=== PATIENT | male | born 1950 | race Caucasian/White ===

== ENCOUNTER 2021-12-22 06:20 | Outpatient (REF) | payer MEDICARE, SELFPAY ==
[2021-12-22 06:33] LABS: MANUAL DIFF FLAG NO
[2021-12-22 06:49] LABS: Basophils Percent Auto 0.2 % (0-2); Eosinophils Absolute Auto 0.1 X10*3/uL (0.0-0.4); Eosinophils Percent Auto 0.9 % (0-4); Hemoglobin 9.7 g/dl (14.0-18.0); Lymphocytes Absolute Auto 0.8 X10*3/uL (1.2-4.9); Lymphocytes Percent Auto 8.1 % (20-40); Mean Corpuscular HGB Conc 30.3 g/dl (31.0-36.0); Mean Corpuscular Hemoglobin 25.5 pg (27.0-33.0); Mean Platelet Volume 9.9 fL (9.4-12.4); Monocytes Absolute Auto 1.2 X10*3/uL (0.1-1.2); Monocytes Percent Auto 12.1 % (2-11); NRBC Pct Auto 0.2 /100WBC (0.0-0.2); Neutrophils Percent Auto 77.7 % (45-73); Platelet Count 230 X10*3/uL (160-400); Red Blood Count 3.81 X10*6/uL (4.60-5.80); Red Cell Distribution Width 16.8 % (11.0-16.0); White Blood Count 10.3 X10*3/uL (4.8-10.8)
[2021-12-22 07:16] LABS: Anion Gap 17 (12-20); Blood Urea Nitrogen 35 mg/dL (9-16); Carbon Dioxide 36 mmol/L (22-29); Chloride 88 mmol/L (96-108); Estimated Glomerular Filt Rate 54; Glucose Random 164 mg/dL (60-115); Potassium 4.2 mmol/L (3.3-5.1); Sodium 137 mmol/L (135-145)
== END 2021-12-22 06:21 | disposition home or self-care (01) ==
LOC: HO.MMNH1L 06:20
PROVIDERS: Visit Provider Family Medicine
DX: Z13.89 Encounter for screening for other disorder (principal)
CPT/HCPCS: 36415; 80048; 85025

== ENCOUNTER 2021-12-22 22:02 | Emergency (ER) | payer MEDICARE, MEDICAID, SELFPAY ==
--- NOTE | 2021-12-22 | ECG_ITS ---
Test Reason : dyspnea Blood Pressure : / mmHG Vent. Rate : 100 BPM Atrial Rate : 100 BPM P-R Int : 156 ms QRS Dur : 128 ms QT Int : 380 ms P-R-T Axes : 078 -52 069 degrees QTc Int : 490 ms Sinus tachycardia Right bundle branch block Left anterior fascicular block Bifascicular block Abnormal ECG No previous ECGs available Referred By: Robby Randall Electronically Signed By:CLIFFORD PADILLA MD
--- NOTE | ~2021-12-22 | XR_ITS ---
EXAMINATION: XR CHEST CLINICAL INFORMATION: Shortness of breath COMPARISON: None TECHNIQUE: Frontal view of the chest was obtained. FINDINGS: Probable COPD with bullous changes. Heart size within normal limits. Patient status post median sternotomy and CABG. There is no evidence of CHF. No infiltrates, effusions or lung masses. Anterior cervical spine fusion hardware is present. XR/XR chest 1V IMPRESSION: No acute intrathoracic disease. Probable COPD.
[2021-12-22 22:07] VITALS: BP 122/74; PULSE 96; RESP 18; TEMP 37.3; O2SAT 98; BMI 25.0
--- NOTE | 2021-12-22 22:12 | ED.SOB ---
HPI - SOB/Dyspnea General Chief Complaint: Dyspnea Stated Complaint: Chest Pressure for a few hours Source: patient Mode of arrival: EMS Limitations: no limitations History of Present Illness HPI Narrative: Patient with severe COPD with frequent hospitalization on home oxygen 2 L , coronary disease status post CABG 4 vessels and stent placement, diabetes mellitus, hyperlipidemia, obstructive sleep apnea, CHF, paroxysmal atrial fibrillation, CKD came from rehab center for increased shortness of breath with chest discomfort started for last 2 -3 days. Patient just had COVID about 2 weeks ago was in [facility] was on steroids which was stopped 5 days ago when patient was discharged in all Related Data Previous Rx's Medication Instructions Recorded doxycycline hyclate 100 mg tablet 100 mg PO BID #20 tabs 12/23/21 Allergies Allergy/AdvReac Type Severity Reaction Status Date / Time No Known Allergies Allergy Verified 12/22/21 22:22 Review of Systems Review of Systems: Yes all other systems are reviewed and are negative [facility] Past Medical History Medical History (Updated 12/23/21 @ 00:51 by Robby Randall MD) Anxiety disorder CHF (congestive heart failure) Chronic respiratory failure with hypoxia CKD (chronic kidney disease) COPD (chronic obstructive pulmonary disease) Coronary artery disease Hyperlipidemia Hypertension On home O2 Paroxysmal A-fib Surgical History (Updated 12/22/21 @ 23:09 by Robby Randall MD) H/O four vessel coronary artery bypass graft H/O heart artery stent Social History Social History Advance Directives: No Advance Directives Information Provided: No Physical Exam Vital Signs: Vital Signs: Last Vital Signs Temp 98.3 F 12/22/21 23:15 Pulse 100 12/22/21 23:15 Resp 16 12/22/21 23:15 BP 116/66 12/22/21 23:15 Pulse Ox 99 12/22/21 23:15 O2 Del Method 12/22/21 23:15 O2 Flow Rate 2 12/22/21 23:15 Oxygen Flow Rate 2 12/22/21 22:07 BMI result Body Mass Index 25.0 Appearance: Alert. Oriented X3. In moderate respiratory distress Eyes: No pallor or icterus ENT: Pharynx normal. Oral Mucosa moist Neck: Normal inspection. Neck supple. CVS: Normal heart rate and rhythm. Pulses normal. Respiratory: No respiratory distress. Equal air entry bilateral, no wheezing/rales/rhonchi Abdomen: Soft and nontender. Bowel sounds are present, no mass palpable, no CVA tenderness Skin: Skin warm and dry. Normal skin color. Normal skin turgor. Extremities: 1+ lower extremity edema. No calf tenderness Neuro: Oriented X 3. No motor deficit. No sensory deficit.No cerebellar signs , cranial nerves II-XII intact MDM - SOB/Dyspnea MDM Narrative Medical decision making narrative: 0 Patient with severe COPD with frequent hospitalization on home oxygen 2 L , coronary disease status post CABG 4 vessels and stent placement, diabetes mellitus, hyperlipidemia, obstructive sleep apnea, CHF, paroxysmal atrial fibrillation, CKD came from rehab center for increased shortness of breath with chest discomfort chest x-ray negative for infiltrate ,COVID positive for last 10 days patient discharged from [facility] 12/18/2021 0030 patient saturating 100% on 2 L lying comfortably had lactic acidosis secondary to albuterol treatment patient is not clinically septic chest x-ray negative patient's [facility] record was reviewed patient had ABG done on 12/06 with normal pCO2 Differential Diagnosis Differential diagnosis: Likely acute exacerbation of chronic obstructive airways disease, congestive heart failure and pneumonia Medical Records Attestation: I reviewed the patient's medical records. Lab Data Attestation: I reviewed the patient's lab results. Result diagrams: 12/22/21 22:50 12/22/21 22:50 Labs: Lab Results 12/22/21 12/22/21 12/22/21 Range/Units 22:50 22:50 22:50 WBC 8.1 (4.8-10.8) X10*3/uL RBC 3.59 L (4.60-5.80) X10*6/uL Hgb 9.1 L (14.0-18.0) g/dl Hct 29.7 L (42.0-52.0) % MCV 82.7 (80.0-98.0) fL MCH 25.3 L (27.0-33.0) pg MCHC 30.6 L (31.0-36.0) g/dl RDW 17.0 H (11.0-16.0) % Plt Count 200 (160-400) X10*3/uL MPV 9.4 (9.4-12.4) fL Immature Gran % (Auto) 0.6 H (0.0-0.4) % Neut % (Auto) 81.1 H (45-73) % Lymph % (Auto) 6.2 L (20-40) % Sioux % (Auto) 11.9 H (2-11) % Eos % (Auto) 0.1 (0-4) % Baso % (Auto) 0.1 (0-2) % Lymph # (Auto) 0.5 L (1.2-4.9) X10*3/uL [place]oux # (Auto) 1.0 (0.1-1.2) X10*3/uL Eos # (Auto) 0.0 (0.0-0.4) X10*3/uL Baso # (Auto) 0.0 (0.0-0.2) X10*3/uL Abs Immat Gran (auto) 0.05 H (0.00-0.03) X10*3/uL Absolute Neuts (auto) 6.5 (2.0-8.3) x10*3/uL Absolute Nucleated RBC 0.020 H (0.0-0.012) X10*3/uL Nucleated RBC % (auto) 0.2 (0.0-0.2) /100WBC PT 20.3 H (10.0-13.1) SEC INR 1.7 H (0.9-1.1) Sodium 136 (135-145) mmol/L Potassium 3.7 (3.3-5.1) mmol/L Chloride 88 L (96-108) mmol/L Carbon Dioxide 35 H (22-29) mmol/L Anion Gap 17 (12-20) BUN 35 H (9-16) mg/dL Creatinine 1.24 (0.5-1.4) mg/dL Estim Creat Clear Calc 61.6 Estimated GFR 57 Random Glucose 175 H (60-115) mg/dL Lactic Acid (0.5-2.0) mmol/L Calcium 8.7 (8.4-10.2) mg/dL Magnesium 1.9 (1.6-2.6) mg/dL Total Bilirubin 0.4 (0.0-1.0) mg/dL AST 13 D (5-37) U/L ALT 45 H (0-40) U/L Alkaline Phosphatase 78 (39-117) U/L Troponin I High Sens (<3.5-35.0) ng/L B-Natriuretic Peptide (<100) pg/mL Total Protein 5.6 L (6.5-8.0) g/dL Albumin 3.5 (3.5-5.0) g/dL COVID-19 (NICO) (Negative) COVID-19 Clin Com 12/22/21 12/22/21 12/22/21 Range/Units 22:50 22:50 22:50 WBC (4.8-10.8) X10*3/uL RBC (4.60-5.80) X10*6/uL Hgb (14.0-18.0) g/dl Hct (42.0-52.0) % MCV (80.0-98.0) fL MCH (27.0-33.0) pg MCHC (31.0-36.0) g/dl RDW (11.0-16.0) % Plt Count (160-400) X10*3/uL MPV (9.4-12.4) fL Immature Gran % (Auto) (0.0-0.4) % Neut % (Auto) (45-73) % Lymph % (Auto) (20-40) % Sioux % (Auto) (2-11) % Eos % (Auto) (0-4) % Baso % (Auto) (0-2) % Lymph # (Auto) (1.2-4.9) X10*3/uL [place] # (Auto) (0.1-1.2) X10*3/uL Eos # (Auto) (0.0-0.4) X10*3/uL Baso # (Auto) (0.0-0.2) X10*3/uL Abs Immat Gran (auto) (0.00-0.03) X10*3/uL Absolute Neuts (auto) (2.0-8.3) x10*3/uL Absolute Nucleated RBC (0.0-0.012) X10*3/uL Nucleated RBC % (auto) (0.0-0.2) /100WBC PT (10.0-13.1) SEC INR (0.9-1.1) Sodium (135-145) mmol/L Potassium (3.3-5.1) mmol/L Chloride (96-108) mmol/L Carbon Dioxide (22-29) mmol/L Anion Gap (12-20) BUN (9-16) mg/dL Creatinine (0.5-1.4) mg/dL Estim Creat Clear Calc Estimated GFR Random Glucose (60-115) mg/dL Lactic Acid 3.2 H* (0.5-2.0) mmol/L Calcium (8.4-10.2) mg/dL Magnesium (1.6-2.6) mg/dL Total Bilirubin (0.0-1.0) mg/dL AST (5-37) U/L ALT (0-40) U/L Alkaline Phosphatase (39-117) U/L Troponin I High Sens 14.4 (<3.5-35.0) ng/L B-Natriuretic Peptide 199 H (<100) pg/mL Total Protein (6.5-8.0) g/dL Albumin (3.5-5.0) g/dL COVID-19 (NICO) Positive A (Negative) COVID-19 Clin Com See Note ECG Data Attestation: I personally reviewed and interpreted this ECG as follows: Interpretation: Normal sinus rhythm heart rate 100 beats per minute right bundle-branch block left anterior fascicular block Q-wave in inferior leads no acute ST T wave changes acute change from EKG done on 12/17 Discharge Plan Discharge Clinical Impression: Acute exacerbation of chronic obstructive airways disease Patient Disposition: Xfer LTC Transfer Details: To [facility] Instructions: COPD (Chronic Obstructive Pulmonary Disease) (ED) Additional Instructions: Continue medications prednisone and albuterol treatments Doxycycline as advised for bronchitis Follow-up with your PCP Prescriptions: New doxycycline hyclate 100 mg tablet 100 mg PO BID Qty: 20 0RF
--- NOTE | 2021-12-22 22:23 | PM.IMHP ---
Meds Allergies Allergy/AdvReac Type Severity Reaction Status Date / Time No Known Allergies Allergy Verified 12/22/21 22:22 Physical Exam Vital Signs and Narrative: Vital Signs: Last Vital Signs Temp 99.1 F 12/22/21 22:07 Pulse 96 12/22/21 22:07 Resp 18 12/22/21 22:07 BP 122/74 12/22/21 22:07 Pulse Ox 98 12/22/21 22:07 O2 Del Method 12/22/21 22:07 Oxygen Flow Rate 2 12/22/21 22:07 BMI result Body Mass Index 25.0
[2021-12-22] MEDS: Albuterol Sulfate 5 MG, Albuterol/Iprat 2.5/0.5MG 3 ML 3 ML INHALE (22:40)
[2021-12-22 22:44] VITALS: PULSE 94; RESP 18; O2SAT 99
[2021-12-22] MEDS: dexAMETHasone sod phosphate 4 MG/ML VIAL 6 MG IVPUSH (22:52)
[2021-12-22 23:04] LABS: MANUAL DIFF FLAG NO
[2021-12-22 23:09] LABS: Basophils Percent Auto 0.1 % (0-2); Eosinophils Percent Auto 0.1 % (0-4); Hematocrit 29.7 % (42.0-52.0); Hemoglobin 9.1 g/dl (14.0-18.0); Imm Gran Abs Auto 0.05 X10*3/uL (0.00-0.03); Imm Gran Pct Auto 0.6 % (0.0-0.4); Lymphocytes Absolute Auto 0.5 X10*3/uL (1.2-4.9); Lymphocytes Percent Auto 6.2 % (20-40); Mean Corpuscular HGB Conc 30.6 g/dl (31.0-36.0); Mean Corpuscular Hemoglobin 25.3 pg (27.0-33.0); Mean Corpuscular Volume 82.7 fL (80.0-98.0); Mean Platelet Volume 9.4 fL (9.4-12.4); Monocytes Percent Auto 11.9 % (2-11); NRBC Pct Auto 0.2 /100WBC (0.0-0.2); Neutrophils Absolute Auto 6.5 x10*3/uL (2.0-8.3); Neutrophils Percent Auto 81.1 % (45-73); Platelet Count 200 X10*3/uL (160-400); Red Blood Count 3.59 X10*6/uL (4.60-5.80); White Blood Count 8.1 X10*3/uL (4.8-10.8)
[2021-12-22 23:14] LABS: INTERNATIONAL NORM RATIO 1.7 (0.9-1.1); Prothrombin Time 20.3 SEC (10.0-13.1)
[2021-12-22 23:15] VITALS: BP 116/66; PULSE 100; RESP 16; TEMP 36.8; O2SAT 99
[2021-12-22 23:17] LABS: COVID-19 Test Positive (Negative)
[2021-12-22 23:24] LABS: Lactic Acid 3.2 mmol/L (0.5-2.0)
[2021-12-22 23:33] LABS: B Type Natriuretic Peptide 199 pg/mL (<100); Troponin-I High Sensitivity 14.4 ng/L (<3.5-35.0)
[2021-12-22 23:42] LABS: Alanine Aminotransferase 45 U/L (0-40); Albumin Level 3.5 g/dL (3.5-5.0); Alkaline Phosphatase 78 U/L (39-117); Anion Gap 17 (12-20); Aspartate Amino Transferase 13 U/L (5-37); Bilirubin Total 0.4 mg/dL (0.0-1.0); Blood Urea Nitrogen 35 mg/dL (9-16); Calcium 8.7 mg/dL (8.4-10.2); Carbon Dioxide 35 mmol/L (22-29); Chloride 88 mmol/L (96-108); Creatinine Clr Calc Pharmacy 61.6; Estimated Glomerular Filt Rate 57; Glucose Random 175 mg/dL (60-115); Magnesium 1.9 mg/dL (1.6-2.6); Potassium 3.7 mmol/L (3.3-5.1); Sodium 136 mmol/L (135-145); Total Protein 5.6 g/dL (6.5-8.0)
[2021-12-23] MEDS: cefTRIAXone sodium 1 GM in 0.9 % Sodium Chloride 50 ML IV (00:05)
--- NOTE | 2021-12-23 00:31 | PC.NURSE ---
Brianna called at 0030 for a bls transfer back to [facility] ETA 30mins.ERIK aware
[2021-12-23] MEDS: 0.9 % Sodium Chloride 1,000 ML 999 ML IV (00:43)
--- NOTE | 2021-12-23 00:59 | PC.NURSE ---
Report called to [facility].
[2021-12-23 01:00] VITALS: BP 137/78; PULSE 76; RESP 16; TEMP 37.1; O2SAT 99
[2021-12-23 01:02] LABS: Reflex Lactate? Lactic Acid Added
== END 2021-12-23 01:06 ==
PROVIDERS: Emergency Provider Internal Medicine; PCP Family Medicine
DX: J44.1 Chronic obstructive pulmonary disease with (acute) exacerbation (principal); R06.02 Shortness of breath; R07.89 Other chest pain; I25.10 Atherosclerotic heart disease of native coronary artery without angina pectoris; Z99.81 Dependence on supplemental oxygen; Z79.899 Other long term (current) drug therapy; Z20.822 Contact with and (suspected) exposure to COVID-19
CPT/HCPCS: 36415; 71045; 80048; 80053; 83605; 83735; 83880; 84484; 85025; 85610; 87040; 87635; 93005; 94640; 96374; 99284; J0696; J1100